=== PATIENT | male | born 1940 | race Caucasian/White ===

== ENCOUNTER → 2016-10-20 | Outpatient (CLI) | payer OTHER ==
[~2016-10-20] MED LIST: CHOL100010 PO; LISI40TA PO; MULT-506 PO; RIVA1TAB4 PO; SILD100T PO; SIMV20TA2 PO
[2016-10-20 13:18] LABS: BASO % 0.5 %; BASO ABS # 0.03 K/uL (0-0.2); COMPLETE YES; HEMATOCRIT 45.3 % (42-52); IG% 0.2 %; LYMPH % 29.2 %; LYMPH ABS # 1.71 K/uL (1.2-3.4); MEAN CELL VOLUME 92.8 fL (80-100); MEAN CORPUSCULAR HEMOGLOBIN 31.1 pg (25-34); MEAN CORPUSCULAR HGB CONC 33.6 g/dl (32-36); MONO % 11.1 %; PLATELET COUNT 271 K/uL (130-400); RED BLOOD COUNT 4.88 M/uL (4.7-6.1); WHITE BLOOD COUNT 5.85 K/uL (4.8-10.8)
[2016-10-20 13:57] LABS: ESTIMATED AVERAGE GLUCOSE 120 mg/dl; HA1C FLAG Normal (Normal)
[2016-10-20 14:18] LABS: BLOOD UREA NITROGEN 21 mg/dl (7-18); BUN/CREATININE RATIO 19.2 (10-20); CALCIUM 10.6 mg/dl (8.5-10.1); CARBON DIOXIDE 25 mmol/L (21-32); CHLORIDE 108 mmol/L (98-107); CHOLESTEROL 149 mg/dl (0-200); GLUCOSE 111 mg/dl (70-99); HDL CHOLESTEROL 49 mg/dl; LDL CHOLESTEROL CALCULATED 65 mg/dl; PHOSPHORUS 2.8 mg/dl (2.5-4.9); POTASSIUM 4.1 mmol/L (3.5-5.1); SODIUM 143 mmol/L (136-145); TRIGLYCERIDES 177 mg/dl (0-150); VERY LOW DENSITY LIPOPROT CALC 35 mg/dl
== END | disposition home or self-care (01) ==
LOC: C.LABPVFM 07:47
PROVIDERS: ATTEND Family Medicine
DX: E78.00 Pure hypercholesterolemia, unspecified (principal); I12.9 Hypertensive chronic kidney disease with stage 1 through stage 4 chronic kidney disease, or unspecified chronic kidney disease; N18.3 Chronic kidney disease, stage 3 (moderate); R73.9 Hyperglycemia, unspecified

== ENCOUNTER → 2017-04-27 | Outpatient (CLI) | payer OTHER ==
[2017-04-27 12:47] LABS: URINE APPEARANCE CLEAR (CLEAR); URINE BILIRUBIN NEG (NEG); URINE COLOR YELLOW; URINE NITRITE NEG (NEG); URINE SPECIFIC GRAVITY 1.019 (1.000-1.030); UROBILINOGEN NEG (NEG)
[2017-04-27 12:52] LABS: MANUAL MICROSCOPIC REQUIRED? NO; REVIEW REQ? NO
[2017-04-27 13:02] LABS: ALKALINE PHOSPHATASE 55 U/L (45-117); ALT/SGPT 39 U/L (12-78); AST/SGOT 20 U/L (15-37); BLOOD UREA NITROGEN 20 mg/dl (7-18); BUN/CREATININE RATIO 16.3 (10-20); CALCIUM 10.5 mg/dl (8.5-10.1); CARBON DIOXIDE 27 mmol/L (21-32); CHLORIDE 109 mmol/L (98-107); GLUCOSE 98 mg/dl (70-99); HDL CHOLESTEROL 39 mg/dl; POTASSIUM 4.3 mmol/L (3.5-5.1); SODIUM 141 mmol/L (136-145); TRIGLYCERIDES 190 mg/dl (0-150); VERY LOW DENSITY LIPOPROT CALC 38 mg/dl
[2017-04-27 13:04] LABS: ALB/GLOB RATIO 1.1 (0.9-2); CHOLESTEROL 135 mg/dl (0-200); CHOLESTEROL/HDL RATIO 3.5; LDL CHOLESTEROL CALCULATED 58 mg/dl
[2017-04-27 13:06] LABS: URINE PROTIEN/CREAT RATIO 0.1 (0-0.2)
== END | disposition home or self-care (01) ==
LOC: C.LABPVFM 07:52
PROVIDERS: ATTEND Family Medicine
DX: N18.3 Chronic kidney disease, stage 3 (moderate) (principal); I12.9 Hypertensive chronic kidney disease with stage 1 through stage 4 chronic kidney disease, or unspecified chronic kidney disease; I48.0 Paroxysmal atrial fibrillation; E78.5 Hyperlipidemia, unspecified; M51.36 Other intervertebral disc degeneration, lumbar region; E55.9 Vitamin D deficiency, unspecified

== ENCOUNTER → 2017-09-20 | Outpatient (CLI) | payer OTHER ==
[2017-09-20 13:08] LABS: ALT/SGPT 29 U/L (12-78); AST/SGOT 15 U/L (15-37); BLOOD UREA NITROGEN 25 mg/dl (7-18); BUN/CREATININE RATIO 22.5 (10-20); CALCIUM 9.9 mg/dl (8.5-10.1); CARBON DIOXIDE 28 mmol/L (21-32); CHLORIDE 106 mmol/L (98-107); CHOLESTEROL 134 mg/dl (0-200); CREATININE 1.11 mg/dl (0.60-1.40); GLUCOSE 105 mg/dl (70-99); SODIUM 138 mmol/L (136-145); TRIGLYCERIDES 180 mg/dl (0-150); VERY LOW DENSITY LIPOPROT CALC 36 mg/dl
[2017-09-20 13:11] LABS: ALKALINE PHOSPHATASE 55 U/L (45-117); CHOLESTEROL/HDL RATIO 3.4; HDL CHOLESTEROL 39 mg/dl; LDL CHOLESTEROL CALCULATED 59 mg/dl
== END | disposition home or self-care (01) ==
LOC: C.LABPVFM 08:04
PROVIDERS: ATTEND Family Medicine
DX: E78.00 Pure hypercholesterolemia, unspecified (principal); I10 Essential (primary) hypertension; G60.9 Hereditary and idiopathic neuropathy, unspecified; I48.0 Paroxysmal atrial fibrillation; E83.52 Hypercalcemia; N52.9 Male erectile dysfunction, unspecified

== ENCOUNTER 2023-08-24 06:47 | Observation (INO) ==
--- NOTE | 2023-07-26 13:08 | PAT Medication Instructions ---
Medication Instructions Date of Service July 26, 2023 Home Medications Medication Instructions Recorded sildenafil 100 mg tablet 100 mg PO .COMPLEX PRN sexual 09/22/22 activity #60 tabs hydrocodone 10 mg-acetaminophen 1 tab PO BID PRN pain #60 tabs 03/23/23 325 mg tablet simvastatin 20 mg tablet 20 mg PO QPM #90 tabs 04/11/23 apixaban 5 mg tablet 5 mg PO BID #180 tabs 07/25/23 Medication List: cholecalciferol (vitamin D3) 25 mcg (1,000 unit) capsule 1,000 units PO QAM multivitamin (Daily Multi-Vitamin tablet) 1 tab PO QAM omega-3 fatty acids 1,000 mg capsule (Fish Oil Concentrate) 1,000 mg PO HS ascorbic acid (vitamin C) 500 mg tablet 500 mg PO HS sildenafil 100 mg tablet 100 mg PO .COMPLEX PRN sexual activity hydrocodone 10 mg-acetaminophen 325 mg tablet 1 tab PO BID PRN pain simvastatin 20 mg tablet 20 mg PO QPM apixaban 5 mg tablet 5 mg PO BID metoprolol succinate 100 mg tablet,extended release 24 hr 100 mg PO QAM MEDICATION INSTRUCTIONS: ASK your prescriber and surgeon apixaban 5 mg tablet 5 mg PO BID (for spinal anesthesia: will need to hold Eliquis/apixaban at least 72 hours prior to surgery) STOP taking 2 weeks before surgery omega-3 fatty acids 1,000 mg capsule (Fish Oil Concentrate) 1,000 mg PO HS DO NOT take the morning of surgery sildenafil 100 mg tablet 100 mg PO .COMPLEX PRN sexual activity cholecalciferol (vitamin D3) 25 mcg (1,000 unit) capsule 1,000 units PO QAM multivitamin (Daily Multi-Vitamin tablet) 1 tab PO QAM Take morning of surgery With a small sip of water, OTHERWISE NOTHING TO EAT OR DRINK AFTER MIDNIGHT: metoprolol succinate 100 mg tablet,extended release 24 hr 100 mg PO QAM hydrocodone 10 mg-acetaminophen 325 mg tablet 1 tab PO BID PRN pain (if needed) Take evening before surgery simvastatin 20 mg tablet 20 mg PO QPM ascorbic acid (vitamin C) 500 mg tablet 500 mg PO HS hydrocodone 10 mg-acetaminophen 325 mg tablet 1 tab PO BID PRN pain Other Notes If you have any questions please call us at [phone] or [phone] or [phone] or [phone]
--- NOTE | 2023-08-05 09:47 | Anesthesiology Consultation ---
Date of Service August 05, 2023 Assessment & Plan (1) Encounter for pre-operative examination: - Infectious disease screening: Per assessment on 08/05/23: No known infectious disease contacts or current infectious disease symptoms. No noted Covid positive test result in past 90 days. - Outpatient joint assessment: Pt currently scheduled for inpatient pathway. If surgeon requests review for outpatient joint pathway, patient is not recommended candidate for outpatient joint program from anesthesia standpoint. - Patient acceptable risk for surgery pending surgeon-ordered PCP (BIGG, appt 08/09) and cardiology (GREGORYG, appt 08/18) preop evaluations. History Surgery Operation Date: 08/24/23 08:50 Proposed Procedures p Right Total Knee Arthroplasty - Jose Wylie MD Height/Weight Height: 5 ft 11 in Weight: 101.6 kg Allergies Allergy/AdvReac Type Severity Reaction Status Date / Time No Known Allergies Allergy Verified 07/25/23 13:41 Medications Home Medications Medication Instructions Recorded Confirmed Last Taken cholecalciferol (vitamin D3) 25 1,000 units PO QAM 04/03/19 07/25/23 Unknown mcg (1,000 unit) capsule multivitamin (Daily Multi-Vitamin 1 tab PO QAM 04/03/19 07/25/23 Unknown tablet) omega-3 fatty acids 1,000 mg 1,000 mg PO HS 07/10/19 07/25/23 Unknown capsule (Fish Oil Concentrate) ascorbic acid (vitamin C) 500 mg 500 mg PO HS 08/11/21 07/25/23 Unknown tablet sildenafil 100 mg tablet 100 mg PO .COMPLEX PRN sexual 09/22/22 07/25/23 Unknown activity #60 tabs hydrocodone 10 mg-acetaminophen 1 tab PO BID PRN pain #60 tabs 03/23/23 07/25/23 Unknown 325 mg tablet simvastatin 20 mg tablet 20 mg PO QPM #90 tabs 04/11/23 07/25/23 Unknown apixaban 5 mg tablet 5 mg PO BID #180 tabs 07/25/23 Unknown metoprolol succinate 100 mg 100 mg PO QAM 07/25/23 07/25/23 Unknown tablet,extended release 24 hr Past Medical History Medical History Mitral valve prolapse Echo 09/2022: Mitral valve prolapse with trace MR Arthritis Prediabetes Sensorineural hearing loss of both ears Significant hearing loss with poor word recognition ability; reduced background noise and do not speak quickly History of basal cell carcinoma AF (paroxysmal atrial fibrillation) Follows with Dr. Johnston Erectile dysfunction Hypercholesterolemia Hypertension Lumbar radiculopathy Peripheral neuropathy Exercise / Class Metabolic Activity III < 4 Walking/Shop/Light housework Past Family History Family History Family/Other Cancer niece Father Myocardial infarction Brother Myocardial infarction Other No family history of adverse response to anesthesia Denies family history of Ovarian cancer Prostate cancer Breast cancer Colorectal cancer Past Surgical History Surgical History History of Mohs micrographic surgery for skin cancer left cheek History of cataract surgery R/L Hx of vasectomy History of tooth extraction History of colonoscopy History of knee surgery right (hardware intact) Past Anesthesia History No Hx of Anesthesia Complications and No Family Hx of Anesthesia Complications History of PONV No Hx of PONV and No Hx of Motion Sickness Social History Smoking Status: Former smoker Do You Dip or Chew Tobacco: No Smoking End Date: Quit age 27 Hx Alcohol Use: No Hx Substance Use: No substance use type: does not use Review of Systems Patient denies chest pain, shortness of breath, fever, chills, cough, wheezing, palpitations. Physical Exam Vital Signs VITALS BP 120/79 P 71 TEMP 98.0 SP02 95%RA RESP 16 PHYSICAL Full cervical extension range of motion. Full TMJ range of motion. TMD 3 finger breaths Mallampati Score 3 Dentition: full upper/lower dentures Lungs: clear throughout to auscultation Cardiac: regular rate, irregular rhythm, I/ systolic murmur Spine: normal Carotid arteries: negative bruit Extremities: no LE edema Lab Results Anesthesia Preop Results Results Anesthesia Widget: WBC 6.88 K/ul (4.8-10.8) 08/05/23 Hgb 14.8 g/dl (14.0-18.0) 08/05/23 Hct 43.8 % (42.0-52.0) 08/05/23 Plt 215 K/uL (130-400) 08/05/23 Na 140 mmol/L (136-145) 08/03/23 K 4.4 mmol/L (3.5-5.1) 08/03/23 Cl 106 mmol/L (98-107) 08/03/23 CO2 28 mmol/L (21-32) 08/03/23 BUN 22 mg/dl (6-23) 08/03/23 Creat 1.01 mg/dl (0.6-1.4) 08/03/23 Glucose Level 92 mg/dl (70-99(Fasting)) 08/03/23 PT 11.7 Seconds (9.0-12.0) 08/03/23 PTT 32.9 Seconds (21.0-31.0) H 08/05/23 INR 1.1 (0.9-1.1) 08/03/23 Urine Color Dark Yellow 08/05/23 Urine Appearance Clear (Clear) 08/05/23 Urine pH 5.0 (4.5-7.5) 08/05/23 Urine Specific [place] 1.025 (1.000-1.030) 08/05/23 Urine Protein Negative (Negative) 08/05/23 Urine Glucose (UA) Negative (Negative) 08/05/23 Urine Ketones Trace (Negative) H 08/05/23 Urine Blood Negative (Negative) 08/05/23 Urine Nitrite Negative (Negative) 08/05/23 Urine Bilirubin Negative (Negative) 08/05/23 Urine Urobilinogen Negative (Negative) 08/05/23 Urine Leukocyte Esterase Negative (Negative) 08/05/23 Blood Type A Positive 08/05/23 Antibody Screen NEGATIVE 08/05/23 Testing Electrocardiogram Date: 08/05/23 A. fib at 70bpm. RBBB. Chest X-Ray Date: 08/05/23 FINDINGS: Lung volumes are normal. Lungs are clear. There is no pneumothorax or pleural effusion. There is moderate cardiomegaly. Mediastinal contours are normal. There is no evidence for pulmonary edema. IMPRESSION: No acute cardiopulmonary findings. Cardiomegaly. Echocardiogram Date: 09/13/22 LVEF 55-60%. No regional wall motion abnormality. Mild concentric LVH. RV mildly dilated with normal function. AV sclerosis. Mitral valve prolapse with trace MR. Mild LAD. Mild RVD. Mild RAD.
--- NOTE | 2023-08-24 06:32 | History & Physical Bridge Note ---
Date of Service August 24, 2023 History & Physical Bridge Note I have examined the patient, reviewed the History & Physical and in the interval since the performance of the History & Physical I have noted the following changes of clinical significance:consent and site verified. no changes noted
[~2023-08-24 06:47] MED LIST changes: -CHOL100010 PO; -LISI40TA PO; +LR 500ML BOLUS, THEN 15ML/HR IV SCH; +LR 60ML/HR IV SCH; -MULT-506 PO; -RIVA1TAB4 PO; +ROPIVACAINE 0.5% HCL/PF 150 MG, BUPIVACAINE 0.75% MPF 20 ML, EPINEPHrine 0.15 MG, Ketor... INFIL SCH; -SILD100T PO; -SIMV20TA2 PO; +TRANEXAMIC ACID 1,000 MG x 1 **For Topical Use Intraop TOP SCH; +ceFAZolin 2000MG 2,000 MG/15 ML SYR IV SCH
[2023-08-24] MEDS ORDERED: BUPIVACAINE 0.5 % 5 MG/1 ML PF 10ML VIAL ONE (07:24)
[2023-08-24] MEDS ORDERED: BUPIVACAINE 0.25% PF 30 ML VIAL ONE (07:24)
[2023-08-24] MEDS ORDERED: MIDAZOLAM HCL 1 MG/ML 2ML VIAL ONE ×2 (08:13→09:06)
[2023-08-24] MEDS ORDERED: ONDANSETRON INJ 2 MG/ML 2 ML VIAL IV PRN ×2 (08:19→13:30)
[2023-08-24] MEDS ORDERED: ATROPINE SULFATE 0.1 MG/ML 10ML SYR IV PRN (08:19)
[2023-08-24] MEDS ORDERED: ePHEDrine sulfate 50 MG/ML AMP IV PRN (08:19)
[2023-08-24] MEDS ORDERED: fentaNYL citrate PF 100 MCG/2 ML VIAL IV PRN (08:19)
[2023-08-24] MEDS ORDERED: ORTHO JOINT ANESTHETIC ONE (08:37)
[2023-08-24] MEDS ORDERED: VANCOMYCIN HCL 1000MG/20ML VIAL ONE (09:54)
--- NOTE | 2023-08-24 10:41 | Post Operative Brief Note ---
Immediate Post Op Note v1 Date of Surgery August 24, 2023 Pre & Post Diagnosis Preop diagnosis severe osteoarthritis with valgus deformity right knee postop diagnosis same Operation Date: 08/24/23 08:50 <No data on this case meets the specified criteria> I identified the patient and participated in the time-out.: Yes Procedure Cemented right total knee replacement Operation Date: 08/24/23 08:50 <No data on this case meets the specified criteria> Surgeon Jose Wylie MD Wine Master KATIE/Landon Estimated Blood Loss 25 Findings Consistent with Post-Op Diagnosis Severe osteoarthritis tricompartmental marked deformity distal femur status post open repair of extensor mechanism marked metal suture. Fluids See anesthesia report
[2023-08-24] MEDS ORDERED: PHENYLEPHRINE 100MCG/ML 10ML SYR IV ONE (10:43)
[2023-08-24] MEDS ORDERED: LIDOCAINE 2% 2 ML VIAL/AMP(20MG/ML) INFIL ONE (10:44)
[2023-08-24] MEDS ORDERED: PROPOFOL IV EMULSION 10 MG/ML 20 ML VIAL IV ONE (10:44)
--- NOTE | 2023-08-24 10:45 | Operative Report ---
Post Operative Report Pre & Post Diagnosis Severe osteoarthritis right knee preop diagnosis postop diagnosis same severe valgus deformity Operation Date: 08/24/23 08:50 <No data on this case meets the specified criteria> I identified the patient and participated in the time-out.: Yes Procedure Cemented right total knee replacement removal of old metal sutures Operation Date: 08/24/23 08:50 <No data on this case meets the specified criteria> Surgeon Jose Wylie MD Church History Professor KATIE/Landon Estimated Blood Loss 25 Findings Consistent with Post-Op Diagnosis Severe tricompartmental osteoarthritis old repair extensor mechanism Fluids See anesthesia report Specimens Bone pathology Drains None Complications Spinal none Indications Severe pain and deformity Description of Procedure After the patient was appropriate notified site verify consent provide antibiotics confirmed as being given the right lower extremities prepped and draped use routine fashion. There was an old U-shaped incision on the knee. This was split down the middle with a longitudinal incision. Full-thickness flaps raised. Should be mentioned the tourniquet was inflated to 275 mmHg for total 60 minutes. Once the joint arthrotomy was performed a complete synovectomy was carried out. There was significant disease. There was marked osteophytes these were resected. There was multiple metal sutures in the area they were removed. There was marked osteophytosis about the patella these were excised. The patella was then internally released and externally released and then was able to be everted. It was then resected leaving roughly 15 mm of bone and a 38 button was then able to be seated. Knee was then flexed the osteophytes were then excised all around the femur and the box of the notch. The distal femur was entered with a drill bit the cruciates excised the tibia subluxated the menisci excised. Distal femur was then cut 14 mm proximal tibia 4 mm extension gap was still tight and additional 2 mm was taken off the tibia that was excellent. The box cut was then made and the size 4 fit well. The tibia was then broached and reamed to a size 4. 12-1/2 spacer gave excellent stability and midrange flexion and did not remove any extension. The patella tracked well. Ortho mix was then injected all about the knee. Knee was then irrigated and soaked in Betadine for 2 minutes and TXA for 3 minutes and then the implants were cemented into position using tibia femur and patella in that order. At 12 minutes the tourniquet was deflated minor bleeding points controlled electrocautery at 14 minutes the knee was then flexed and no summer was required the implants look excellent. Vancomycin 1 g powder was then placed throughout the knee the permanent liner seated the knee reduced and closed at 40 degrees of flexion using #2 Vicryl 2-0 Vicryl and standstill clips appropriate dressing and Cricket Johnston cotton applied. Patient then transferred recovery in satisfactory Tolerated the procedure well. EBL was 25 cc or less crystalloid per anesthesia bone pathology pending DVT prophylaxis per protocol. Summary of implant size 4 posterior cruciate stabilized femur size 4 rotating platform size 4 spacer 12.5 mm thick posterior cruciate stabilized old on 3 peg patella size 38 2 bags of [place] G cement 1 g of vancomycin powder. DVT prophylaxis again per protocol. Pathology pending on bone. I attest to the content of the Intraoperative Record and any orders documented therein. Any exceptions are noted below.
--- NOTE | 2023-08-24 10:46 | Orthopedic Progress Note ---
Date of Service August 24, 2023 Orthopedic Progress Note Tolerated right total knee replacement well. Denies any chest pain shortness of breath fever chills nausea vomiting or headache. Vital signs are stable he is afebrile. Neurovascular check limited by spinal. X-rays pending. Assessment doing well overall continue with care pathway. Status post cemented right total knee replacement
--- NOTE | 2023-08-24 10:48 | Discharge Summary ---
Date of Service August 25, 2023 Admission HPI Per Admitting Provider Severe right knee pain severe valgus deformity Principal Diagnosis Severe osteoarthritis right knee Discharge Data Allergies Allergy/AdvReac Type Severity Reaction Status Date / Time No Known Allergies Allergy Verified 08/24/23 07:22 Vaccinations None Consultations None Procedures Performed Operation Date: 08/24/23 08:50 <No data on this case meets the specified criteria> Ordered Studies 08/24/23 05:00 US - OR guided needle placemen Routine Hospital Course (1) Status post right knee replacement: home with services Plan Continue care pathway 23-hour admission discharge to home. Total Time Total Time Spent Total Time Spent (In Minutes): 5 minutes Discharge Plan Discharge Items Patient Disposition: Home - Home Health Services Reason For Visit: Right Knee Osteoarthritis Discharge Diagnosis: Right knee s/p total knee replacement Condition on Discharge: Good Activity: Per Instructions section Lifting: Wait until after follow-up appointment Bathing: Keep incision dry Sexual Activity: Wait until after follow-up appointment Exercise/Sports: Wait until after follow-up appointment Driving/Machine Use: No driving until cleared by Dr. Wylie Weightbearing: Full weightbearing Non-emergency contact: Surgeon Call non-emergency contact if: you have any medication questions, your pain is not controlled, your temperature is above 101, your wound has increased redness, your wound has increased drainage and your wound pain has increased Follow-up/Referrals: Jessica Luong MD [Primary Care Provider] - Paul Navarrete PA-C [Physician Leather Colorer] - 09/08/23 1:30 pm Diet: Heart Healthy Addtl Attending Provider Instructions: New Medicine: * You will likely be taking one or more of these medications: 1. Percocet - Take, as directed, when you need it, every four to six hours to control your pain. 2. Iron Sulfate - Take three times each day for the month after surgery to help you replace the blood lost during surgery. 3. Eliquis - Thins your blood to lessen the chance of forming a blood clot. * The most common side effects of pain medicine and iron are nausea and constipation. If nausea or constipation is too much of a problem or if you have any questions about your new medicines or doses, call [facility] at . We will try to help you manage these issues. "VERY IMPORTANT TO READ AND REVIEW" Blood Clots and Blood Thinning Medicine: * You are given Eliquis during the immediate post-operative period to lessen the risk of blood clots forming in your legs and/or lungs. Pain: * The immediate post-operative period after knee replacement surgery is often quite painful. * You are given a prescription for pain medicine. You should take it, as directed, when you need it, especially before physical therapy and before going to bed. Pain that interferes with sleep is very common and can last several months. * You will likely need pain medicine for the first four to six weeks. It will not stop all of the pain. The pain will lessen and as you feel better, you may change to milder pain medicine such as Tylenol. * The most common side effects of pain medicine are nausea and constipation, so don't take more than you need. Physical Therapy: * You will have physical therapy two or three times each week for four to six weeks after your surgery in order to regain your knee range of motion and to retrain your knee to work properly. * It is just as important to make sure you are getting your knee perfectly straight as it is to regain your knee bend. * Taking a pain pill an hour before therapy can help you have a more productive and comfortable therapy session if needed. Home Exercise: * You were shown a series of exercises (heel props, heel slides, etc.) in the hospital. Do these exercises three to four times each day including the exercises you were shown in physical therapy. Walking: * Get up and walk several times each day. For the first four weeks, try not to stand or walk for more than one hour at a time. If you do stand or walk for more than one hour, you will not hurt anything, but your knee and leg will likely swell. * As you feel comfortable, you may change from the walker or crutches to a cane and then to independent walking. SELF CARE INSTRUCTIONS AFTER TOTAL KNEE REPLACEMENT A. You may need to continue a physical therapy program after discharge from the hospital. There are several options available to you. Your doctor will assist you in selecting the best one for you. 1. An out-patient facility 2 to 3 times a week for therapy or home therapy. 2. Continue working on all exercises taught to you in the hospital. Your goals should be to increase bending of your knee to 90 degrees and beyond and to fully straighten your knee. B. You may progress at your own pace from walking with a walker or crutches to a cane; then to no assistive devices. C. Make walking a part of your daily routine. Be up as much as comfortable with rest periods throughout the day. Rest with leg elevation is very important. Use the ice wrap frequently for the first 3-4 weeks. D. There are no restrictions on activities. You may ride in a car, shop, participate in client manager large law and all social activities. E. Wear the long elastic stockings (KAROL hose) 20 hours a day for six weeks after surgery. They can be removed several times a day for laundering and for a shower. F. Do not place a pillow behind your knee when resting. A pillow at your ankle is okay. VERY IMPORTANT TO READ AND REVIEW A. Take Eliquis (blood thinning medication) as directed by your doctor. B. There are a few signs you need to watch for after you are home. Call [facility] if you notice any of the followin. Increased severe knee pain. Some pain is expected especially when you exercise. 2. Increased swelling in your leg or knee; pain or swelling of the calf muscle in either lower leg. 3. Any fluid drainage from the incision. 4. Shortness of breath or chest pain. C. Please call [facility] at if you have any concerns or questions about your operation or recovery. The doctor or his nurse will return your call promptly. D. You must take antibiotics before dental work, bladder, bowel or other surgery. Call the office to obtain a prescription at least 2 days prior to your appointment. * CALL IF INCREASED PAIN, REDNESS, DRAINAGE OR FEVER GREATER THAT 101. * Sutures should be removed 15 days after surgery unless you are on chronic steroids, then it will be 14-18 days after surgery. Call your doctor if: * Temperature above 101 degrees F. * Pain not relieved by pain medicine ordered. * Increased drainage or redness from incision. * Notify your doctor with any questions or concerns. Keep your dressings clean and intact for the weekend. They can be changed on Tuesday by home nursing if needed for soiling ice and elevate the leg frequently to reduce pain/swelling use the knee immobilizer when out of bed on and Tuesday. Do not wear it in bed. It can be discontinued entirely on Tuesday morning. use your walker for ambulation and for standing. Resume your Eliquis night with dinner. It should be taken 2x day. Pending Studies at Discharge: Yes (Bone pathology) Stand-Alone Forms: My [facility], Smoking Cessation Medications and DC Order Prescriptions: New oxycodone-acetaminophen [Percocet] 5-325 mg tablet 2 tab PO Q6H PRN (Reason: pain) Qty: 20 0RF Rx Instructions: initial script No Action simvastatin 20 mg tablet 20 mg PO QPM Qty: 90 3RF apixaban 5 mg tablet 5 mg PO BID Qty: 180 3RF multivitamin [Daily Multi-Vitamin] tablet 1 tab PO QAM cholecalciferol (vitamin D3) 1,000 unit capsule 1,000 units PO QAM omega-3 fatty acids [Fish Oil Concentrate] 1,000 mg capsule 1,000 mg PO HS ascorbic acid (vitamin C) 500 mg tablet 500 mg PO HS hydrocodone-acetaminophen 10-325 mg tablet 1 tab PO BID PRN (Reason: pain) Qty: 60 0RF Rx Instructions: TAKE 1/2 TO ONE TABLET PO BID PRN; DISPENSE # 60 metoprolol succinate 100 mg tablet extended release 24 hr 100 mg PO QAM sildenafil [Viagra] 100 mg tablet 100 mg PO .COMPLEX PRN (Reason: sexual activity) Rx Instructions: 100 mg PO PRN 1 hour before needed. Admission Data Admit Date/Time: 08/24/23 11:08 Attending Provider: Jose Wylie Admit Provider: Jose Wylie Primary Care Provider: Jessica Luong Other Providers: [employer],[facility]
--- NOTE | 2023-08-24 10:59 | Operative Report ---
Post Operative Report Pre & Post Diagnosis Operation Date: 08/24/23 08:50 Pre-Op Diagnosis: Right Knee Degenerative Joint Disease Post-Op Diagnosis: Right Knee Degenerative Joint Disease I identified the patient and participated in the time-out.: Yes Procedure Operation Date: 08/24/23 08:50 Actual Procedures p Right Total Knee Arthroplasty(Right) - Jose Wylie MD Surgeon Jose Wylie MD Baggage Smasher KATIE/Landon Estimated Blood Loss 25 Findings Consistent with Post-Op Diagnosis Same as postoperative diagnosis. Specimens None Description of Procedure Please see detailed operative note. I attest to the content of the Intraoperative Record and any orders documented therein. Any exceptions are noted below.
--- NOTE | 2023-08-24 11:00 | Operative Report ---
Post Operative Report Pre & Post Diagnosis Operation Date: 08/24/23 08:50 Pre-Op Diagnosis: Right Knee Degenerative Joint Disease Post-Op Diagnosis: Right Knee Degenerative Joint Disease I identified the patient and participated in the time-out.: Yes Procedure Operation Date: 08/24/23 08:50 Actual Procedures p Right Total Knee Arthroplasty(Right) - Jose Wylie MD Surgeon AMINATA Wylie MD Compactor Driver KATIE/Landon [place] Estimated Blood Loss 25 Findings Consistent with Post-Op Diagnosis see operative report Specimens see operative report Drains none Complications none Disposition Accompanied Patient To Recovery: Yes Indications This 82 year old male presented to the office with complaints of persisting right knee pain. He had tried conservative care measures without improvement. He elected to proceed with surgical intervention after being educated about potential risks and outcomes. Preoperative imaging was obtained. Description of Procedure The patient was administered a spinal anesthetic and then taken to the operating room where he was given sedation. He was prepped and draped in the usual sterile fashion. Please see Dr. Wylie's operative report for specifics of the procedure. I was present for the entire case from initial patient positioning through final wound closure. Assistance was provided in tissue retraction, hemostasis, trial implant placement, final implant placement, and final wound closure. The patient was taken to the recovery room in satisfactory condition. I attest to the content of the Intraoperative Record and any orders documented therein. Any exceptions are noted below.
--- NOTE | 2023-08-24 11:18 | XRay Report ---
TWO VIEWS RIGHT KNEE CLINICAL HISTORY: Postoperative examination. FINDINGS: AP and crosstable lateral portable views of the right knee are obtained. A right knee arthr oplasty is in near anatomic alignment. There has been undersurface remodeling of the patella. No acut e fracture is seen. There are expected postoperative changes around the knee including skin clips, so ft tissue edema, and subcutaneous gas. Cerclage wires are noted in the patella. Atherosclerotic calci fication is noted in the popliteal artery. IMPRESSION: Expected postoperative changes status post right knee arthroplasty. No acute fracture is seen. ACT 112: Negative or not required by law. Electronically signed by: Daren Osman M.D. 08/24/2023 11:17 AM
--- NOTE | 2023-08-24 13:09 | Anesthesiology Progress Note ---
Date of Service August 24, 2023 Anesthesia Post Procedure Vital Signs Vital Signs: Temp Pulse Resp BP BP Pulse Ox O2 Del Method 08/24/23 12:50 36.4 C L 67 20 127/80 97 Room Air 08/24/23 12:40 62 20 147/79 H 97 Room Air 08/24/23 12:30 68 16 136/79 95 Room Air 08/24/23 12:20 63 18 142/67 H 96 Room Air 08/24/23 12:10 58 L 16 143/81 H 94 Room Air 08/24/23 12:00 65 15 118/93 97 Room Air 08/24/23 11:50 61 18 126/82 96 Room Air 08/24/23 11:40 63 18 128/75 96 Room Air 08/24/23 11:30 72 14 128/83 98 Room Air 08/24/23 11:20 73 16 120/66 96 Room Air 08/24/23 11:10 71 18 117/73 100 Room Air 08/24/23 11:00 72 20 98/61 L 100 Oxymask 08/24/23 10:56 36.8 C 74 18 106/67 96 Oxymask 08/24/23 07:20 36.6 C 83 20 134/78 95 Room Air O2 Flow Rate 08/24/23 12:50 08/24/23 12:40 08/24/23 12:30 08/24/23 12:20 08/24/23 12:10 08/24/23 12:00 08/24/23 11:50 08/24/23 11:40 08/24/23 11:30 08/24/23 11:20 08/24/23 11:10 08/24/23 11:00 6 08/24/23 10:56 6 08/24/23 07:20 Pain Intensity Right Knee: Pain Intensity: 0 Transfer of Care Handoff Completed per policy Notes Mental Status: alert / awake / arousable and participated in evaluation Patient Amnestic to Procedure: Yes Nausea / Vomiting: adequately controlled Pain: adequately controlled Airway Patency, RR, SpO2: stable & adequate BP & HR: stable & adequate Hydration State: stable & adequate Neuraxial Anesthesia: was administered and sensory block is resolving Anesthetic Complications: no major complications apparent and Pt Satisfied with anesthetic care Notes: moving legs, flexing quads, feels SCD's. denies back pain.
[2023-08-24] MEDS ORDERED: bisacodyL 10 MG SUPP PR PRN (13:30)
[2023-08-24] MEDS ORDERED: METOCLOPRAMIDE HCL INJ 5 MG/ML 2 ML VIAL IV PRN (13:30)
[2023-08-24] MEDS ORDERED: NALOXONE HCL 0.4 MG/1 ML VIAL/CARP IV PRN (13:30)
[2023-08-24] MEDS ORDERED: SODIUM CHLORIDE 0.9% 1,000 ML IV SCH (13:30)
[2023-08-24] MEDS ORDERED: ALUMINUM/MAGNESIUM SUSP 30 ML UDC PO PRN (13:30)
[2023-08-24] MEDS ORDERED: MAGNESIUM HYDROXIDE SUSP 30 ML UDC PO PRN (13:30)
[2023-08-24] MEDS ORDERED: diphenhydrAMINE 50 MG/ML VIAL IV PRN (13:30)
[2023-08-24] MEDS ORDERED: HYDROmorphone INJ 0.5 MG/0.5 ML SYR IV PRN (13:30)
[2023-08-24] MEDS: ACETAMINOPHEN 500 MG TAB PO SCH ×2 (14:20→21:06)
[2023-08-24] MEDS: ASCORBIC ACID 500 MG TAB PO SCH (16:26)
[2023-08-24] MEDS: FERROUS GLUCONATE 324 MG TAB PO SCH (16:26)
--- NOTE | 2023-08-24 16:28 | Orthopedic Progress Note ---
Date of Service August 24, 2023 Assessment & Plan Admission and Anticipated Discharge Date Admission Date: August 24, 2023 Orthopedic Progress Note Postop check status post right total knee replacement. Patient is doing well. Denies chest pain shortness of breath fever chills nausea vomiting or headache. Vital signs are stable he is afebrile. Neurovascular check femoral sciatic nerve is intact. Can do a straight leg raise can do ankle pumps. Wound dressing clean dry and intact. Assessment doing well saline lock IV get him out of bed weightbearing to tolerance with knee immobilizer on. Start range of motion exercises. Make sure he gets a sheet. Discharge tomorrow. Start anticoagulation tomorrow.
[2023-08-24] MEDS: ceFAZolin 2000MG 2,000 MG/15 ML SYR IV SCH (16:37)
[2023-08-24] MEDS: oxyCODONE HCL IR 5 MG TAB (IMMEDIATE RELEASE) PO PRN (16:48)
[2023-08-24] MEDS ORDERED: SENNA 8.6 MG TAB PO SCH (21:00)
[2023-08-24] MEDS ORDERED: SIMVASTATIN 20 MG TAB PO SCH (21:00)
[2023-08-24] MEDS: DOCUSATE SODIUM 100 MG CAP PO SCH (21:06)
[2023-08-25] MEDS: ceFAZolin 2000MG 2,000 MG/15 ML SYR IV SCH (01:02)
[2023-08-25] MEDS: oxyCODONE HCL IR 5 MG TAB (IMMEDIATE RELEASE) PO PRN (05:42)
[2023-08-25] MEDS: ACETAMINOPHEN 500 MG TAB PO SCH (05:42)
[2023-08-25 07:05] LABS: Hematocrit (blood only) 34.8 % (42.0-52.0); Hemoglobin 12.1 g/dl (14.0-18.0); Mean Corpuscular Hemoglobin 32.6 pg (25.0-34.0); Mean Corpuscular Hgb Conc 34.8 g/dL (32.0-36.0); Mean Corpuscular Volume 93.8 fL (80.0-100.0); Mean Platelet Volume 10.6 fL (9.4-12.4); Platelet Count 196 K/uL (130-400); RDW Standard Deviation 44.3 fL (36.4-46.3); Red Blood Count 3.71 M/uL (4.70-6.10); White Blood Count 12.49 K/ul (4.8-10.8)
[2023-08-25 07:20] LABS: BUN Creatinine Ratio 28.8 (10-20); Calcium 9.9 mg/dl (8.6-10.3); Creatinine Clr Calc Pharmacy 88.6 ml/min; Est GFR (African American) 97.8 ml/min; Est GFR (Non-African American) 84.4 ml/min; Potassium 4.1 mmol/L (3.5-5.1)
--- NOTE | 2023-08-25 07:27 | Orthopedic Progress Note ---
Date of Service August 25, 2023 Assessment & Plan Admission and Anticipated Discharge Date Admission Date: August 24, 2023 Orthopedic Progress Note Stop day #1 status post right total knee replacement. Patient is awake and alert denies chest pain shortness of breath fever chills nausea vomiting or headache. Vital signs are stable he is afebrile. Neurovascular check femoral sciatic nerve is normal. Wound dressing is changed. Wound is clean and dry. Flaps are viable. Can do a straight leg raise. Calves nontender. Hematocrit stable in the mid 30 range. Assessment doing well status post right knee replacement for severe deformity. At this point in time things are looking good. Will have him discharged to home today. Dressing change was made today. Asked to stay on until Tuesday. I have instructed him not to let home nursing change it until Tuesday. He can follow-up with us if needed for other dressing changes if he starts to get some kind of drainage because of his chronic Eliquis use. Would not start the Eliquis until 24 hours postop. He states he understands. Follow-up in 2 weeks.
[2023-08-25] MEDS ORDERED: dexAMETHasone 10 MG in SYRINGE 0 ML IV SCH (08:00)
[2023-08-25] MEDS: ASCORBIC ACID 500 MG TAB PO SCH (08:23)
[2023-08-25] MEDS: DOCUSATE SODIUM 100 MG CAP PO SCH (08:25)
[2023-08-25] MEDS: FERROUS GLUCONATE 324 MG TAB PO SCH (08:25)
[2023-08-25] MEDS ORDERED: APIXABAN 5 MG TABLET PO SCH (09:00)
[2023-08-25] MEDS ORDERED: METOPROLOL SUCC 50MG EXT REL TAB PO SCH (09:00)
[2023-08-25] MEDS ORDERED: MULTIVITAMIN TAB PO SCH (09:00)
--- NOTE | 2023-08-25 11:43 | Consultation ---
Date of Consultation August 25, 2023 Assessment & Plan (1) New onset atrial fibrillation: Follows up with cardiology outpatient On apixaban 5 mg twice daily (2) Mitral regurgitation: Mild mitral regurgitation Follows up with cardiology (3) Hypertension: Blood pressures under good control Continue home medications. (4) Status post right knee replacement: He is now status post right knee replacement Rest of management per orthopedics Pain is under good control PT OT Plan Discharge plans in motion plans for discharge today. History of Present Illness Reason for Consultation: Medical management Attending Physician: Jose Wylie MD History of Present Illness Is an 82-year-old male with a history of hypertension, atrial fibrillation dyslipidemia, mitral regurgitation for whom internal medicine was consulted. He is status post right total knee replacement. Vital signs are stable, blood pressure 134/74, pulse 76 respiratory rate 18 temperature 98 saturating well on room air. Allergies Allergy/AdvReac Type Severity Reaction Status Date / Time No Known Allergies Allergy Verified 08/24/23 07:22 Home Medications Medication Instructions Recorded Confirmed Type cholecalciferol (vitamin D3) 25 1,000 units PO QAM 04/03/19 08/24/23 History mcg (1,000 unit) capsule multivitamin (Daily Multi-Vitamin 1 tab PO QAM 04/03/19 08/24/23 History tablet) omega-3 fatty acids 1,000 mg 1,000 mg PO HS 07/10/19 08/24/23 History capsule (Fish Oil Concentrate) ascorbic acid (vitamin C) 500 mg 500 mg PO HS 08/11/21 08/24/23 History tablet hydrocodone 10 mg-acetaminophen 1 tab PO BID PRN pain #60 tabs 03/23/23 08/24/23 Rx 325 mg tablet simvastatin 20 mg tablet 20 mg PO QPM #90 tabs 04/11/23 08/24/23 Rx apixaban 5 mg tablet 5 mg PO BID #180 tabs 07/25/23 08/24/23 Rx metoprolol succinate 100 mg 100 mg PO QAM 07/25/23 08/24/23 History tablet,extended release 24 hr oxycodone-acetaminophen 5 mg-325 2 tab PO Q6H PRN pain #20 tabs 08/24/23 Rx mg tablet (Percocet) sildenafil 100 mg tablet (Viagra) 100 mg PO .COMPLEX PRN sexual 08/24/23 08/24/23 History activity Patient History Medical History Mitral valve prolapse Arthritis Prediabetes Sensorineural hearing loss of both ears History of basal cell carcinoma AF (paroxysmal atrial fibrillation) Erectile dysfunction Hypercholesterolemia Hypertension Lumbar radiculopathy Peripheral neuropathy Surgical History History of Mohs micrographic surgery for skin cancer History of cataract surgery Hx of vasectomy History of tooth extraction History of colonoscopy History of knee surgery Family History Family/Other Cancer Father Myocardial infarction Brother Myocardial infarction Other No family history of adverse response to anesthesia Denies family history of Ovarian cancer Prostate cancer Breast cancer Colorectal cancer Social History Smoking Status: Former smoker Tobacco Type: Cigarettes Smoking End Date: Quit age 27; Second Hand Exposure: No; Do You Dip or Chew Tobacco: No; Hx Alcohol Use: No Hx Substance Use: No Preferred Language: [place] Communication Ability: Effective Hearing Ability: Use of Hearing Aid Tumor Registrar Required: No Beliefs That Will Affect Care: None marital status: Current Living Situation: Spouse current occupational status: retired How many Children do You have: 2 Feels Safe at Home: Yes Safety Concerns: Feels Safe At This Time Childhood Exposure to Second-Hand Smoke: Yes Diet: regular caffeine: Yes Dental Care, Regularly: Yes Physical Activity Frequency: Daily Seatbelt Use: always Sunscreen Use: No Assistive Devices: Cane, Walker and Other Review of Systems Review of Systems: All systems reviewed are negative, apart from the ones contained in the history. Physical Exam Physical Exam: The patient is awake, alert and oriented 3, well developed and well nourished, normocephalic and atraumatic, lying in bed and in no acute distress. HEENT--PERRL, EOMI, mucous membranes and oropharynx mildly dry Neck--supple. No JVD. No bruits. Thyroid normal, trachea midline, no adenopathy. Heart--normal S1 and S2. No murmurs, rubs or gallops. Lungs--clear bilaterally, no respiratory distress, no accessory muscle use. Abdomen--normal bowel sounds and soft. Mild epigastric and left sided abdominal pain Extremities--no cyanosis or clubbing. No edema. Dermatologic--normal skin turgor, normal color, no abnormal lymph nodes, no rash. Neurologic--cranial nerves II through XII grossly intact. Rheumatologic--normal range of motion. Psychiatric--normal affect. Results & Data Vital Signs (Past 12 Hours) Vital Signs Temp Pulse Resp BP Pulse Ox O2 Del Method 08/25/23 07:35 98.1 F 76 18 124/74 95 Room Air 08/25/23 03:30 97.9 F 79 18 125/74 96 Room Air 08/25/23 00:01 98.1 F 74 18 118/72 93 Room Air
== END 2023-08-25 12:01 | disposition home health service (06) ==
LOC: ASU 06:47 → 3N 06:47